=== PATIENT | male | born 1975 | race Caucasian/White ===

== ENCOUNTER 2016-08-29 01:08 | Emergency (ER) | payer OTHER ==
[~2016-08-29] VITALS: Ht 170.2 cm; Wt 95.7 kg
[2016-08-29 01:19] VITALS: BP 238/165
--- NOTE | 2016-08-29 01:29 | NUR ---
PT TAKEN TO BED 4
--- NOTE | 2016-08-29 01:30 | NUR ---
41Y M PRESENTED IN ER C/O OF PAIN TO LT LEG. PT HAS BIG WOUND IN HIS LT LOWER GEL, WOUND LOOKS INFECTED AND INFLAMED.
--- NOTE | 2016-08-29 01:35 | NUR ---
Dr. Greene evaluating patient at bedside.
[2016-08-29] MEDS ORDERED: ENALAPRILAT 2.5 MG/2 ML VIAL IVP ONE (01:45)
[2016-08-29] MEDS ORDERED: CLINDAMYCIN 900 MG in DEXTROSE 5% 100 ML IV ONE (01:45)
[2016-08-29] MEDS ORDERED: CLINDAMYCIN 900 MG/6 ML VIAL IV ONE (02:02)
[2016-08-29 02:53] LABS: BASOPHILS # (AUTO) 0.1 K/uL (0.00-0.22); BASOPHILS % (AUTO) 0.8 % (0.0-2.0); EOSINOPHILS # (AUTO) 0.2 K/uL (0-0.4); EOSINOPHILS % (AUTO) 1.7 % (0.0-4.0); HEMATOCRIT 41.9 % (36-52); LYMPHOCYTES % (AUTO) 20.1 % (20.5-51.1); MEAN CORPUSCULAR HEMOGLOBIN 29 pg (27-31); MEAN CORPUSCULAR HGB CONC 33 g/dL (33-37); MEAN CORPUSCULAR VOLUME 88 fL (80-94); MONOCYTES # (AUTO) 0.9 K/uL (0.8-1.0); MONOCYTES % (AUTO) 9.2 % (1.7-9.3); NEUTROPHILS # (AUTO) 6.8 K/uL (1.8-7.7); NEUTROPHILS % (AUTO) 68.2 % (42.2-75.2); PLATELET COUNT (AUTO) 214 K/uL (140-450); RED BLOOD CELL COUNT(AUTO) 4.78 MIL/uL (4.20-6.10); RED CELL DISTRIBUTION WIDTH 12.2 % (11.6-13.7)
[2016-08-29] MEDS ORDERED: HYDROcodone/APAP 10/325 MG 1 TAB TAB PO ONE (03:00)
[2016-08-29 03:01] LABS: ALBUMIN 3.1 g/dL (3.4-5.0); ANION GAP 10.6 (8-16); CALCIUM 8.9 mg/dL (8.5-10.1); CARBON DIOXIDE 32.2 mmol/L (21-32); CREATININE 1.1 mg/dL (0.6-1.3); TOTAL BILIRUBIN 0.4 mg/dL (0.0-1.0); TOTAL PROTEIN, SERUM 7.3 g/dL (6.4-8.2)
[2016-08-29 03:04] LABS: POTASSIUM 2.8 mmol/L (3.5-5.1)
[2016-08-29] MEDS ORDERED: POTASSIUM CHLORIDE 10 MEQ TABER PO ONE (03:05)
[2016-08-29] MEDS ORDERED: hydrALAZINE 20 MG/ML VIAL IVP ONE (03:10)
[2016-08-29 04:00] VITALS: BP 222/104
--- NOTE | 2016-08-29 04:55 | NUR ---
Patient discharged with v/s stable. Written and verbal after care instructions given and explained. Patient alert, oriented and verbalized understanding of instructions. Ambulatory with steady gait. All questions addressed prior to discharge. ID band removed. Patient advised to follow up with PMD. Rx of NORCO, AND CLINDAMYCIN given. Patient educated on indication of medication including possible reaction and side effects. Opportunity to ask questions provided and answered.
== END 2016-08-29 04:55 | disposition home or self-care (01) ==
LOC: MED 01:08
DX: E11.622 Type 2 diabetes mellitus with other skin ulcer (principal); L97.929 Non-pressure chronic ulcer of unspecified part of left lower leg with unspecified severity; I16.0 Hypertensive urgency
CPT/HCPCS: 36415; 73590; 80053; 82948; 85025; 85651; 86140; 96361; 96374; 96375; 99285; J0360; J3490